=== PATIENT | female | born 1940 | race Caucasian/White ===

== ENCOUNTER 2016-03-06 08:48 | Outpatient (CLI) | payer MEDICARE, OTHER | END 2016-03-06 08:49 | disposition home or self-care (01) | LOC: BURLAB 08:48 | PROVIDERS: ATTEND Family Medicine | DX: E03.9 Hypothyroidism, unspecified (principal); G60.9 Hereditary and idiopathic neuropathy, unspecified | CPT/HCPCS: 36415; 82607; 82746; 84165; 84443 ==

== ENCOUNTER 2019-10-18 20:13 | Inpatient (IN) | payer MEDICARE, OTHER ==
[2019-10-18] MEDS ORDERED: Ascorbic Acid 500 mg Chewable Tablet PO SCH (22:30)
[2019-10-18] MEDS ORDERED: Gabapentin 300 MG CAP PO SCH (22:30)
[2019-10-18] MEDS ORDERED: Cholecalciferol 1,000 UNITS (25 MCG) TAB PO SCH (22:30)
[2019-10-18] MEDS ORDERED: Aspirin 81 mg Enteric Coated Tablet PO SCH (22:30)
[2019-10-18] MEDS ORDERED: Venlafaxine HCl XR 75 MG CAP PO SCH (22:30)
[2019-10-19] MEDS: Levothyroxine Sodium 50 MCG TAB PO SCH (05:54)
[2019-10-19] MEDS: traMADol HCl 50 MG TAB PO PRN ×3 (06:52→20:05)
[2019-10-19] MEDS: Cholecalciferol 1,000 UNITS (25 MCG) TAB PO SCH ×2 (09:19→20:04)
[2019-10-19] MEDS: Aspirin 81 mg Enteric Coated Tablet PO SCH ×2 (09:20→20:05)
[2019-10-19] MEDS: Triamterene/Hydrochlorothiazide 37.5 mg/25 mg Tablet PO SCH (09:20)
[2019-10-19] MEDS: Ferrous Sulfate 325 MG TAB PO SCH (09:20)
[2019-10-19] MEDS: Ascorbic Acid 500 mg Chewable Tablet PO SCH ×2 (09:20→20:04)
[2019-10-19] MEDS: [UNRECOGNIZED DRUG - OTHER] PO SCH (09:24)
--- NOTE | 2019-10-19 11:56 | HP ---
A 79-year-old female admitted to [facility] from [facility] in [place] for continued rehab of total left knee replacement done 10/16/[address] Baker. She reports pain minimal to left knee and has been participating in therapy without problem. CURRENT MEDICINES: 1. Triamterene 37.5/25 once daily. 2. Levothyroxine 50 mcg daily. 3. Gabapentin 600 mg at bedtime. 4. Venlafaxine ER 150 mg at bedtime. 5. Propranolol ER 80 mg at bedtime. She also takes various supplements including, 1. Prevagen. 2. Iron 65 mg daily. 3. Apple cider vinegar 450 mg daily. 4. Vitamin D 125 mcg b.i.d. 5. Vitamin C 500 mg b.i.d. 6. Turmeric b.i.d. PAST MEDICAL HISTORY: Hypothyroidism, postmenopausal vasovagal flushing, and chronic anemia. ALLERGIES: NO KNOWN ALLERGIES. SOCIAL HISTORY: She is a nonsmoker. No alcohol. REVIEW OF SYSTEMS: CONSTITUTIONAL: Denies fever, chills, sweats, appetite changes or weight loss or gain. EYES: No vision changes, eye pain, discharge or redness. ENT: Denies hearing loss, ear pain, URI symptoms or sore throat. RESPIRATIONS: Denies cough, dyspnea, wheeze, or asthma. CV: Denies chest pain dyspnea on exertion, PND, orthopnea, edema, or claudication. GI: Denies constipation, diarrhea, indigestion, dysphagia, food allergies or intolerances. : Denies frequency, dysuria, nocturia, or incontinence. MUSCULOSKELETAL: Denies muscle weakness or joint swelling. SKIN: Denies rash or lesion. NEURO: Denies dizziness, syncope, headache, weakness, ataxia, or confusion. PSYCH: Denies past mental illness, sleep disturbance, depression, or anxiety. PHYSICAL EXAMINATION: VITAL SIGNS: Temperature 98.6, heart rate 68, respirations 18, 97% on room air, blood pressure 119/58. She weighs 185 pounds. GENERAL APPEARANCE: Alert, oriented x3, well appearing, no acute distress. HEENT: Eyes; conjunctiva clear. No discharge. EOMs intact. PERRLA. Oral cavity; moist mucous membranes. No ulcer or lesion. Normal dentition with dentures. NECK: Thyroid, supple. No lymphadenopathy. No JVD. No carotid bruit. No thyromegaly. CV: Regular rate and rhythm. Normal S1, S2. No murmurs. RESPIRATIONS: Clear to auscultation. Good air entry bilaterally. No crackles or wheezes. ABDOMEN: Soft, nontender. No masses or megaly. Normal bowel sounds. NEURO: CN 2 through 12 grossly intact. Motor function normal. SKIN: Normal. No rash. EXTREMITIES: Left Knee Chris wrap intact. PSYCH: Appropriate mood and affect. Normal speech. No thought disorder. LABORATORY DATA: The day she was transferred; WBCs 8.5, H and H 9.8 and 30.3, platelets 167. ASSESSMENT: Status post left total knee replacement. Good pain management. PLAN: Continue with rehab Left Knee. Job ID: [id number] [facility]
[2019-10-19] MEDS: Gabapentin 300 MG CAP PO SCH (20:03)
[2019-10-19] MEDS: Venlafaxine HCl XR 75 MG CAP PO SCH (20:05)
[2019-10-19] MEDS: PROPRANOLOL HCL 80 MG PO SCH (20:06)
[2019-10-20] MEDS: Levothyroxine Sodium 50 MCG TAB PO SCH (05:52)
[2019-10-20] MEDS: traMADol HCl 50 MG TAB PO PRN ×2 (05:52→20:59)
[2019-10-20] MEDS: Cholecalciferol 1,000 UNITS (25 MCG) TAB PO SCH ×2 (09:19→20:59)
[2019-10-20] MEDS: Ferrous Sulfate 325 MG TAB PO SCH (09:20)
[2019-10-20] MEDS: Aspirin 81 mg Enteric Coated Tablet PO SCH ×2 (09:20→20:59)
[2019-10-20] MEDS: Ascorbic Acid 500 mg Chewable Tablet PO SCH ×2 (09:20→20:58)
[2019-10-20] MEDS: Triamterene/Hydrochlorothiazide 37.5 mg/25 mg Tablet PO SCH (09:20)
[2019-10-20] MEDS: [UNRECOGNIZED DRUG - OTHER] PO SCH (09:20)
[2019-10-20] MEDS: Gabapentin 300 MG CAP PO SCH (20:58)
[2019-10-20] MEDS: Venlafaxine HCl XR 75 MG CAP PO SCH (20:59)
[2019-10-20] MEDS: PROPRANOLOL HCL 80 MG PO SCH (21:16)
[2019-10-21] MEDS: Levothyroxine Sodium 50 MCG TAB PO SCH (05:38)
[2019-10-21] MEDS: traMADol HCl 50 MG TAB PO PRN ×2 (05:59→21:53)
[2019-10-21] MEDS: Ascorbic Acid 500 mg Chewable Tablet PO SCH ×2 (08:14→21:56)
[2019-10-21] MEDS: Cholecalciferol 1,000 UNITS (25 MCG) TAB PO SCH ×2 (08:14→21:55)
[2019-10-21] MEDS: [UNRECOGNIZED DRUG - OTHER] PO SCH (08:14)
[2019-10-21] MEDS: Ferrous Sulfate 325 MG TAB PO SCH (08:14)
[2019-10-21] MEDS: Aspirin 81 mg Enteric Coated Tablet PO SCH ×2 (08:14→21:55)
[2019-10-21] MEDS: Triamterene/Hydrochlorothiazide 37.5 mg/25 mg Tablet PO SCH (08:14)
[2019-10-21] MEDS: Venlafaxine HCl XR 75 MG CAP PO SCH (21:55)
[2019-10-21] MEDS: Propranolol HCl 20 MG TAB PO SCH (21:55)
[2019-10-21] MEDS: Gabapentin 300 MG CAP PO SCH (21:55)
[2019-10-21] MEDS: PROPRANOLOL HCL 80 MG PO SCH (21:56)
[2019-10-22 01:38] LABS: Bilirubin Negative (Negative); Blood, Urine Negative (Negative); Clarity Slightly Cloudy (Clear); Glucose, Urine (Dipstick) Negative (Negative); Ketone, Urine Negative (Negative); Leukocyte Trace (Negative); Nitrite Negative (Negative); Protein, Urine (Dipstick) Negative (Neg-Trace); Urobilinogen 0.2 mg/dL (Less than 2); pH, Urine 5.5 (5.0-9.0)
[2019-10-22 01:49] LABS: Bacteria/HPF 1+ HPF (None Seen); RBC/HPF 0-3 HPF (0-3); Squamous Epithelial 0-3 HPF (0-3); Yeast-Budding Rare HPF (None Seen)
[2019-10-22] MEDS: Levothyroxine Sodium 50 MCG TAB PO SCH (06:20)
[2019-10-22] MEDS: Triamterene/Hydrochlorothiazide 37.5 mg/25 mg Tablet PO SCH (08:54)
[2019-10-22] MEDS: Ferrous Sulfate 325 MG TAB PO SCH (08:54)
[2019-10-22] MEDS: Ascorbic Acid 500 mg Chewable Tablet PO SCH ×2 (08:54→20:39)
[2019-10-22] MEDS: Propranolol HCl 20 MG TAB PO SCH ×2 (08:54→20:37)
[2019-10-22] MEDS: Aspirin 81 mg Enteric Coated Tablet PO SCH ×2 (08:55→20:39)
[2019-10-22] MEDS: Cholecalciferol 1,000 UNITS (25 MCG) TAB PO SCH ×2 (08:55→20:39)
[2019-10-22] MEDS: [UNRECOGNIZED DRUG - OTHER] PO SCH (08:55)
[2019-10-22] MEDS: traMADol HCl 50 MG TAB PO PRN ×2 (14:30→21:38)
[2019-10-22] MEDS: Cephalexin 250 MG CAP PO SCH ×2 (14:30→20:39)
[2019-10-22] MEDS: Gabapentin 300 MG CAP PO SCH (20:38)
[2019-10-22] MEDS: Venlafaxine HCl XR 75 MG CAP PO SCH (20:38)
[2019-10-22] MEDS: PROPRANOLOL HCL 80 MG PO SCH (20:42)
[2019-10-23] MEDS: Levothyroxine Sodium 50 MCG TAB PO SCH (06:02)
[2019-10-23] MEDS: traMADol HCl 50 MG TAB PO PRN ×2 (08:36→20:50)
[2019-10-23] MEDS: Triamterene/Hydrochlorothiazide 37.5 mg/25 mg Tablet PO SCH (08:37)
[2019-10-23] MEDS: Cephalexin 250 MG CAP PO SCH ×3 (08:37→20:44)
[2019-10-23] MEDS: Ascorbic Acid 500 mg Chewable Tablet PO SCH ×2 (08:37→20:45)
[2019-10-23] MEDS: Aspirin 81 mg Enteric Coated Tablet PO SCH ×2 (08:37→20:45)
[2019-10-23] MEDS: [UNRECOGNIZED DRUG - OTHER] PO SCH (08:38)
[2019-10-23] MEDS: Cholecalciferol 1,000 UNITS (25 MCG) TAB PO SCH ×2 (08:38→20:45)
[2019-10-23] MEDS: Ferrous Sulfate 325 MG TAB PO SCH (08:38)
[2019-10-23] MEDS: Gabapentin 300 MG CAP PO SCH (20:42)
[2019-10-23] MEDS: Venlafaxine HCl XR 75 MG CAP PO SCH (20:44)
[2019-10-23] MEDS: PROPRANOLOL HCL 80 MG PO SCH (21:00)
[2019-10-24] MEDS: Levothyroxine Sodium 50 MCG TAB PO SCH (04:31)
[2019-10-24] MEDS: Cephalexin 250 MG CAP PO SCH ×3 (08:58→20:48)
[2019-10-24] MEDS: Aspirin 81 mg Enteric Coated Tablet PO SCH ×2 (08:58→20:47)
[2019-10-24] MEDS: Cholecalciferol 1,000 UNITS (25 MCG) TAB PO SCH ×2 (08:59→20:48)
[2019-10-24] MEDS: Ascorbic Acid 500 mg Chewable Tablet PO SCH ×2 (08:59→20:48)
[2019-10-24] MEDS: Triamterene/Hydrochlorothiazide 37.5 mg/25 mg Tablet PO SCH (08:59)
[2019-10-24] MEDS: Ferrous Sulfate 325 MG TAB PO SCH (09:00)
[2019-10-24] MEDS: [UNRECOGNIZED DRUG - OTHER] PO SCH (09:03)
[2019-10-24] MEDS: traMADol HCl 50 MG TAB PO PRN ×2 (13:02→20:48)
[2019-10-24] MEDS: Venlafaxine HCl XR 75 MG CAP PO SCH (20:47)
[2019-10-24] MEDS: Gabapentin 300 MG CAP PO SCH (20:47)
[2019-10-24] MEDS: Bisacodyl 5 MG TAB PO PRN (20:59)
[2019-10-24] MEDS: PROPRANOLOL HCL 80 MG PO SCH (22:14)
[2019-10-25] MEDS: Levothyroxine Sodium 50 MCG TAB PO SCH (05:00)
[2019-10-25] MEDS: Cephalexin 250 MG CAP PO SCH ×3 (09:14→21:27)
[2019-10-25] MEDS: Aspirin 81 mg Enteric Coated Tablet PO SCH ×2 (09:14→21:27)
[2019-10-25] MEDS: Triamterene/Hydrochlorothiazide 37.5 mg/25 mg Tablet PO SCH (09:14)
[2019-10-25] MEDS: Ascorbic Acid 500 mg Chewable Tablet PO SCH ×2 (09:15→21:28)
[2019-10-25] MEDS: Ferrous Sulfate 325 MG TAB PO SCH (09:15)
[2019-10-25] MEDS: Cholecalciferol 1,000 UNITS (25 MCG) TAB PO SCH ×2 (09:16→21:28)
[2019-10-25] MEDS: Bisacodyl 5 MG TAB PO PRN (09:17)
[2019-10-25] MEDS: [UNRECOGNIZED DRUG - OTHER] PO SCH (09:18)
[2019-10-25] MEDS: traMADol HCl 50 MG TAB PO PRN (11:19)
[2019-10-25] MEDS: Gabapentin 300 MG CAP PO SCH (21:27)
[2019-10-25] MEDS: Venlafaxine HCl XR 75 MG CAP PO SCH (21:27)
[2019-10-25] MEDS: PROPRANOLOL HCL 80 MG PO SCH (21:27)
[2019-10-26] MEDS: Levothyroxine Sodium 50 MCG TAB PO SCH (05:10)
[2019-10-26] MEDS: Cephalexin 250 MG CAP PO SCH ×3 (08:35→20:46)
[2019-10-26] MEDS: Triamterene/Hydrochlorothiazide 37.5 mg/25 mg Tablet PO SCH (08:35)
[2019-10-26] MEDS: Ascorbic Acid 500 mg Chewable Tablet PO SCH ×2 (08:35→20:46)
[2019-10-26] MEDS: Aspirin 81 mg Enteric Coated Tablet PO SCH ×2 (08:35→20:45)
[2019-10-26] MEDS: Ferrous Sulfate 325 MG TAB PO SCH (08:36)
[2019-10-26] MEDS: Cholecalciferol 1,000 UNITS (25 MCG) TAB PO SCH ×2 (10:35→20:45)
[2019-10-26] MEDS: [UNRECOGNIZED DRUG - OTHER] PO SCH (10:37)
[2019-10-26] MEDS: traMADol HCl 50 MG TAB PO PRN (13:38)
[2019-10-26] MEDS: Gabapentin 300 MG CAP PO SCH (20:44)
[2019-10-26] MEDS: Venlafaxine HCl XR 75 MG CAP PO SCH (20:46)
[2019-10-26] MEDS: PROPRANOLOL HCL 80 MG PO SCH (20:51)
[2019-10-27] MEDS: Levothyroxine Sodium 50 MCG TAB PO SCH (05:21)
[2019-10-27] MEDS: traMADol HCl 50 MG TAB PO PRN (09:04)
[2019-10-27] MEDS: Cholecalciferol 1,000 UNITS (25 MCG) TAB PO SCH ×2 (09:06→20:41)
[2019-10-27] MEDS: [UNRECOGNIZED DRUG - OTHER] PO SCH (09:06)
[2019-10-27] MEDS: Aspirin 81 mg Enteric Coated Tablet PO SCH ×2 (09:07→20:42)
[2019-10-27] MEDS: Cephalexin 250 MG CAP PO SCH ×3 (09:07→20:41)
[2019-10-27] MEDS: Ascorbic Acid 500 mg Chewable Tablet PO SCH ×2 (09:07→20:41)
[2019-10-27] MEDS: Ferrous Sulfate 325 MG TAB PO SCH (09:08)
[2019-10-27] MEDS: Triamterene/Hydrochlorothiazide 37.5 mg/25 mg Tablet PO SCH (09:11)
[2019-10-27] MEDS: PROPRANOLOL HCL 80 MG PO SCH (20:40)
[2019-10-27] MEDS: Gabapentin 300 MG CAP PO SCH (20:42)
[2019-10-27] MEDS: Venlafaxine HCl XR 75 MG CAP PO SCH (20:43)
[2019-10-28] MEDS: Levothyroxine Sodium 50 MCG TAB PO SCH (05:40)
[2019-10-28] MEDS: [UNRECOGNIZED DRUG - OTHER] PO SCH (09:03)
[2019-10-28] MEDS: Cholecalciferol 1,000 UNITS (25 MCG) TAB PO SCH ×2 (09:04→20:17)
[2019-10-28] MEDS: Ascorbic Acid 500 mg Chewable Tablet PO SCH ×2 (09:05→20:19)
[2019-10-28] MEDS: Ferrous Sulfate 325 MG TAB PO SCH (09:05)
[2019-10-28] MEDS: Cephalexin 250 MG CAP PO SCH ×3 (09:05→20:17)
[2019-10-28] MEDS: Triamterene/Hydrochlorothiazide 37.5 mg/25 mg Tablet PO SCH (09:05)
[2019-10-28] MEDS: Aspirin 81 mg Enteric Coated Tablet PO SCH ×2 (09:08→20:18)
[2019-10-28] MEDS: PROPRANOLOL HCL 80 MG PO SCH (20:16)
[2019-10-28] MEDS: Gabapentin 300 MG CAP PO SCH (20:18)
[2019-10-28] MEDS: Venlafaxine HCl XR 75 MG CAP PO SCH (20:19)
[2019-10-28] MEDS: traMADol HCl 50 MG TAB PO PRN (20:23)
[2019-10-29] MEDS: Levothyroxine Sodium 50 MCG TAB PO SCH (05:17)
[2019-10-29] MEDS: Cholecalciferol 1,000 UNITS (25 MCG) TAB PO SCH ×2 (08:46→21:22)
[2019-10-29] MEDS: Ascorbic Acid 500 mg Chewable Tablet PO SCH ×2 (08:47→21:23)
[2019-10-29] MEDS: Triamterene/Hydrochlorothiazide 37.5 mg/25 mg Tablet PO SCH (08:47)
[2019-10-29] MEDS: Cephalexin 250 MG CAP PO SCH ×2 (08:47→15:54)
[2019-10-29] MEDS: Ferrous Sulfate 325 MG TAB PO SCH (08:47)
[2019-10-29] MEDS: Aspirin 81 mg Enteric Coated Tablet PO SCH ×2 (08:48→21:24)
[2019-10-29] MEDS: [UNRECOGNIZED DRUG - OTHER] PO SCH (08:52)
[2019-10-29] MEDS: traMADol HCl 50 MG TAB PO PRN (09:47)
[2019-10-29] MEDS: Gabapentin 300 MG CAP PO SCH (21:23)
[2019-10-29] MEDS: Venlafaxine HCl XR 75 MG CAP PO SCH (21:23)
[2019-10-29] MEDS: PROPRANOLOL HCL 80 MG PO SCH (21:26)
[2019-10-30] MEDS: Levothyroxine Sodium 50 MCG TAB PO SCH (05:39)
[2019-10-30] MEDS: Aspirin 81 mg Enteric Coated Tablet PO SCH ×2 (08:23→20:54)
[2019-10-30] MEDS: Ferrous Sulfate 325 MG TAB PO SCH (08:23)
[2019-10-30] MEDS: Cholecalciferol 1,000 UNITS (25 MCG) TAB PO SCH ×2 (08:24→20:53)
[2019-10-30] MEDS: Triamterene/Hydrochlorothiazide 37.5 mg/25 mg Tablet PO SCH (08:24)
[2019-10-30] MEDS: Ascorbic Acid 500 mg Chewable Tablet PO SCH ×2 (08:24→20:53)
[2019-10-30] MEDS: [UNRECOGNIZED DRUG - OTHER] PO SCH (08:25)
[2019-10-30] MEDS: traMADol HCl 50 MG TAB PO PRN (11:29)
[2019-10-30] MEDS: Venlafaxine HCl XR 75 MG CAP PO SCH (20:53)
[2019-10-30] MEDS: Gabapentin 300 MG CAP PO SCH (20:53)
[2019-10-30] MEDS: PROPRANOLOL HCL 80 MG PO SCH (20:55)
[2019-10-31] MEDS: Levothyroxine Sodium 50 MCG TAB PO SCH (04:57)
[2019-10-31] MEDS: [UNRECOGNIZED DRUG - OTHER] PO SCH (09:20)
[2019-10-31] MEDS: Ferrous Sulfate 325 MG TAB PO SCH (09:23)
[2019-10-31] MEDS: Triamterene/Hydrochlorothiazide 37.5 mg/25 mg Tablet PO SCH (09:26)
[2019-10-31] MEDS: Ascorbic Acid 500 mg Chewable Tablet PO SCH ×2 (09:26→20:52)
[2019-10-31] MEDS: Cholecalciferol 1,000 UNITS (25 MCG) TAB PO SCH ×2 (09:26→20:51)
[2019-10-31] MEDS: Aspirin 81 mg Enteric Coated Tablet PO SCH ×2 (09:27→20:52)
[2019-10-31] MEDS: traMADol HCl 50 MG TAB PO PRN ×2 (10:36→20:52)
[2019-10-31] MEDS: Gabapentin 300 MG CAP PO SCH (20:51)
[2019-10-31] MEDS: Venlafaxine HCl XR 75 MG CAP PO SCH (20:51)
[2019-10-31] MEDS: PROPRANOLOL HCL 80 MG PO SCH (23:01)
[2019-11-01] MEDS: Levothyroxine Sodium 50 MCG TAB PO SCH (05:24)
[2019-11-01] MEDS: Cholecalciferol 1,000 UNITS (25 MCG) TAB PO SCH ×2 (08:21→21:03)
[2019-11-01] MEDS: traMADol HCl 50 MG TAB PO PRN (08:22)
[2019-11-01] MEDS: Bisacodyl 5 MG TAB PO PRN (08:23)
[2019-11-01] MEDS: Triamterene/Hydrochlorothiazide 37.5 mg/25 mg Tablet PO SCH (08:24)
[2019-11-01] MEDS: Ascorbic Acid 500 mg Chewable Tablet PO SCH ×2 (08:24→21:04)
[2019-11-01] MEDS: Ferrous Sulfate 325 MG TAB PO SCH (08:24)
[2019-11-01] MEDS: Aspirin 81 mg Enteric Coated Tablet PO SCH ×2 (08:25→21:03)
[2019-11-01] MEDS: [UNRECOGNIZED DRUG - OTHER] PO SCH (08:26)
[2019-11-01] MEDS: Venlafaxine HCl XR 75 MG CAP PO SCH (21:03)
[2019-11-01] MEDS: Gabapentin 300 MG CAP PO SCH (21:04)
[2019-11-01] MEDS: PROPRANOLOL HCL 80 MG PO SCH (21:04)
[2019-11-02] MEDS: Levothyroxine Sodium 50 MCG TAB PO SCH (05:11)
[2019-11-02] MEDS: Ascorbic Acid 500 mg Chewable Tablet PO SCH ×2 (10:25→20:24)
[2019-11-02] MEDS: Aspirin 81 mg Enteric Coated Tablet PO SCH ×2 (10:28→20:25)
[2019-11-02] MEDS: Triamterene/Hydrochlorothiazide 37.5 mg/25 mg Tablet PO SCH (10:30)
[2019-11-02] MEDS: Ferrous Sulfate 325 MG TAB PO SCH (10:30)
[2019-11-02] MEDS: [UNRECOGNIZED DRUG - OTHER] PO SCH (10:30)
[2019-11-02] MEDS: Cholecalciferol 1,000 UNITS (25 MCG) TAB PO SCH ×2 (10:31→20:24)
[2019-11-02 11:27] VITALS: BMI 26.7
[2019-11-02] MEDS: Gabapentin 300 MG CAP PO SCH (20:23)
[2019-11-02] MEDS: Venlafaxine HCl XR 75 MG CAP PO SCH (20:24)
[2019-11-02] MEDS: PROPRANOLOL HCL 80 MG PO SCH (20:25)
[2019-11-03] MEDS: Levothyroxine Sodium 50 MCG TAB PO SCH (04:58)
[2019-11-03 06:19] VITALS: BP 118/56; TEMP 98.2
[2019-11-03] MEDS: Cholecalciferol 1,000 UNITS (25 MCG) TAB PO SCH (09:17)
[2019-11-03] MEDS: Ferrous Sulfate 325 MG TAB PO SCH (09:18)
[2019-11-03] MEDS: Aspirin 81 mg Enteric Coated Tablet PO SCH (09:18)
[2019-11-03] MEDS: Ascorbic Acid 500 mg Chewable Tablet PO SCH (09:18)
[2019-11-03] MEDS: Triamterene/Hydrochlorothiazide 37.5 mg/25 mg Tablet PO SCH (09:18)
[2019-11-03] MEDS: [UNRECOGNIZED DRUG - OTHER] PO SCH (09:21)
[2019-11-03] MEDS: traMADol HCl 50 MG TAB PO PRN (11:52)
--- NOTE | 2019-11-04 08:28 | DIS ---
DATE OF ADMISSION: 10/18/2019 DATE OF DISCHARGE: 11/03/2019 DISCHARGE DIAGNOSIS: Left total knee replacement. DISPOSITION: Home with outpatient physical therapy 2 times weekly. HOSPITAL COURSE: A 79-year-old female patient, status post left total knee replacement on 10/16/[address] Baker, being discharged home to [place], [place], where she lives with her sister from the [facility] after having completed 2 weeks of inpatient rehab. She will continue physical therapy 2 days a week. Her incision is well healed. Her pain is minimal. She will follow up with Dr. Baker on 11/23/2019. DIET: As tolerated. ACTIVITY: As tolerated. ALLERGIES: NO KNOWN ALLERGIES. CODE STATUS: She is a full code. DISCHARGE MEDICATIONS: 1. Aspirin 81 mg b.i.d. 2. Vitamin D3 of 5000 units b.i.d. 3. Ferrous sulfate 325 p.o. daily. 4. Gabapentin 600 mg 2 tablets p.o. at bedtime. 5. Levothyroxine 50 mcg daily. 6. Triamterene/hydrochlorothiazide 37.5/25 once daily. 7. Venlafaxine ER 150 mg at bedtime. 8. Propranolol ER 80 mg at bedtime. She also takes supplements includin. Prevagen. 2. Apple cider vinegar. 3. Vitamin C. 4. Turmeric. FOLLOWUP: As stated above, she will follow up with Dr. Baker in 2 weeks. Job ID: [id number]
== END 2019-11-03 15:00 | disposition home or self-care (01) | DRG 561 ==
LOC: BURMED 20:13
PROVIDERS: ADMIT Family Medicine; ATTEND Family Medicine
DX: Z47.1 Aftercare following joint replacement surgery (principal); Z96.652 Presence of left artificial knee joint; E03.9 Hypothyroidism, unspecified; D64.9 Anemia, unspecified
CPT/HCPCS: 81003; 81015; 87086